=== PATIENT | male | born 2000 | race African-American/Black ===

== ENCOUNTER 2023-11-10 08:33 | Emergency (ER) | payer BC ==
[~2023-11-10] VITALS: Ht 175.3 cm; Wt 87.0 kg
[2023-11-10] MEDS ORDERED: IBUP200T46 PO (08:44)
[2023-11-10] MEDS: IBUPROFEN 600MG TAB PO ONE (09:49)
[2023-11-10 10:26] LABS: Trichomonas vaginalis (AMP) NOT DETECTED (NEGATIVE)
[2023-11-10] MEDS ORDERED: VALA1TAB5 PO (10:47)
[2023-11-10 10:49] LABS: GC DNA AMPLIFICATION NEGATIVE (NEGATIVE)
[2023-11-10 10:52] VITALS: BP 119/75; TEMP 98.6; O2SAT 97
== END 2023-11-10 10:58 | disposition home or self-care (01) ==
LOC: M ED 08:33
DX: A60.01 Herpesviral infection of penis (principal); B34.9 Viral infection, unspecified; J02.9 Acute pharyngitis, unspecified; Z79.1 Long term (current) use of non-steroidal anti-inflammatories (NSAID); Z79.2 Long term (current) use of antibiotics

== ENCOUNTER → 2023-11-29 | Outpatient (REF) | payer BC ==
[~2023-11-29] MED LIST: IBUP200T46 PO; VALA1TAB5 PO
[2023-11-29 14:03] LABS: Trichomonas vaginalis (AMP) NOT DETECTED (NEGATIVE)
[2023-11-29 14:26] LABS: GC DNA AMPLIFICATION NEGATIVE (NEGATIVE)
== END ==
LOC: M LAB REF 12:32
PROVIDERS: ATTEND Nurse Practitioner Family
DX: R30.0 Dysuria (principal); Z11.3 Encounter for screening for infections with a predominantly sexual mode of transmission